=== PATIENT | female | born 1985 | race Caucasian/White ===

== ENCOUNTER 2021-05-10 10:32 | Emergency (ER) | payer OTHER ==
[~2021-05-10] VITALS: Ht 167.6 cm; Wt 113.4 kg
[2021-05-10 10:33] VITALS: BP 156/99
--- NOTE | 2021-05-10 10:46 | NUR ---
SERGO. HANDED ON URINE CUP.
--- NOTE | 2021-05-10 10:56 | NUR ---
BP 151/97 AT THIS TIME.
--- NOTE | 2021-05-10 11:00 | NUR ---
REFERRED FROM CLINIC FOR HTN. C/O MID ABD PAIN X 10 MINS AGO. DENIES HEADCAHE OR DIZZINESS AT THIS TIME.BP 156/99 AT THIS TIME. PMH: ANEMIA, ECTOPIC PREG & SURGERY IN 2014, LEFT OVARIAN CYST
--- NOTE | 2021-05-10 11:45 | NUR ---
BLOOD SAMPLES COLLECTED AND WALKED TO LAB, HANDED TO TECH
[2021-05-10 12:26] LABS: ALBUMIN 3.9 g/dL (3.4-5.0); ANION GAP 13.7 (8-16); CARBON DIOXIDE 27.2 mmol/L (21-32); CREATININE 0.7 mg/dL (0.6-1.3); POTASSIUM 3.9 mmol/L (3.5-5.1); TOTAL BILIRUBIN 0.3 mg/dL (0.0-1.0)
[2021-05-10 12:53] LABS: BASOPHILS % (AUTO) 0.5 % (0.0-2.0); EOSINOPHILS # (AUTO) 0.2 K/uL (0-0.4); EOSINOPHILS % (AUTO) 2.7 % (0.0-4.0); HEMATOCRIT 38.2 % (36-48); LYMPHOCYTES # (AUTO) 1.9 K/uL (2.5-16.5); LYMPHOCYTES % (AUTO) 28.9 % (20.5-51.1); MEAN CORPUSCULAR HEMOGLOBIN 23 pg (27-31); MEAN CORPUSCULAR HGB CONC 32 g/dL (33-37); MEAN CORPUSCULAR VOLUME 73.4 fL (80-94); MONOCYTES # (AUTO) 0.3 K/uL (0.8-1.0); MONOCYTES % (AUTO) 4.9 % (1.7-9.3); NEUTROPHILS # (AUTO) 4.1 K/uL (1.8-7.7); PLATELET COUNT (AUTO) 260 K/uL (140-450); RED CELL DISTRIBUTION WIDTH 17.3 % (11.6-13.7); WHITE BLOOD COUNT (AUTO) 6.4 K/uL (4.8-10.8)
[2021-05-10] MEDS ORDERED: ACET-10509 PO (13:12)
[2021-05-10 13:22] VITALS: BP 142/93
--- NOTE | 2021-05-10 13:22 | NUR ---
Patient discharged with v/s stable. Written and verbal after care instructions ABOUT ABDOMINAL PAIN AND HYPERTENSION given and explained. Patient alert, oriented and verbalized understanding of instructions. Ambulatory with steady gait. All questions addressed prior to discharge. ID band removed. Patient advised to follow up with PMD. Rx of TYLENOL EXTRA STRENGTH given. Patient educated on indication of medication including possible reaction and side effects. Opportunity to ask questions provided and answered.
== END 2021-05-10 13:22 | disposition home or self-care (01) ==
LOC: MED 10:32
DX: I10 Essential (primary) hypertension (principal); R10.32 Left lower quadrant pain
CPT/HCPCS: 36415; 80053; 81002; 81025; 85025; 99283